=== PATIENT | male | born 1980 | race African-American/Black ===

== ENCOUNTER 2022-08-12 09:15 | Outpatient (CLI) | payer OTHER ==
[2022-08-12] MEDS ORDERED: Iopamidol-370 76% 500 ML 1 ML ONE (15:53)
== END 2022-08-12 09:16 | disposition home or self-care (01) ==
LOC: BICCT 09:15
PROVIDERS: ATTEND Physician Assistant
DX: I82.492 Acute embolism and thrombosis of other specified deep vein of left lower extremity (principal); R05.3 Chronic cough
CPT/HCPCS: 71275; Q9967

== ENCOUNTER 2022-09-01 08:25 | Outpatient (CLI) | payer OTHER | END 2022-09-01 08:26 | disposition home or self-care (01) | LOC: SCSMRI 08:25 | PROVIDERS: ATTEND Physician Assistant | DX: K86.89 Other specified diseases of pancreas (principal); K44.9 Diaphragmatic hernia without obstruction or gangrene; N28.1 Cyst of kidney, acquired | CPT/HCPCS: 74183 ==